=== PATIENT | female | born 1960 | race Caucasian/White ===

== ENCOUNTER 2018-12-29 13:25 | Emergency (ER) | payer SELFPAY ==
[2018-12-29] MEDS ORDERED: Lidocaine 1% PF 5 ML VIAL ONE (13:41)
[2018-12-29] MEDS ORDERED: Sodium Bicarbonate 2.5 MEQ/5 ML VIAL ONE (13:41)
[2018-12-29] MEDS ORDERED: Sulfameth/Trimethoprim DS 800-160mg TAB ONE (13:58)
== END 2018-12-29 14:11 | disposition home or self-care (01) ==
LOC: BURERS 13:25
DX: L02.415 Cutaneous abscess of right lower limb (principal)
CPT/HCPCS: 10060; 87070; 87077; 87205; J2001

== ENCOUNTER 2023-05-07 08:53 | Emergency (ER) | payer MEDICARE, OTHER, SELFPAY ==
[2023-05-07] MEDS ORDERED: Lidocaine 4% Cream 5 GM TUBE w/ Tegaderm ONE (09:22)
== END 2023-05-07 10:12 | disposition home or self-care (01) ==
LOC: BURERS 08:53
DX: S01.01XA Laceration without foreign body of scalp, initial encounter (principal); W22.8XXA Striking against or struck by other objects, initial encounter
CPT/HCPCS: 12001